=== PATIENT | male | born 1950 | race Caucasian/White ===

== ENCOUNTER 2017-10-30 13:44 | Inpatient (IN) ==
--- NOTE | 2017-10-29 22:02 | Discharge Summary ---
<Blanca Lackey - Last Filed: 10/29/17 22:00> Date of Encounter: 10/29/17 - Discharge Diagnosis (1) Rotator cuff tear arthropathy of right shoulder Priority: Primary Status: Acute (2) Status post reverse arthroplasty of right shoulder Priority: Primary Status: Acute (3) Obesity Priority: Secondary Status: Chronic Qualifiers: Obesity type: unspecified obesity type Obesity classification: unspecified obesity classification Serious obesity comorbidity presence: unspecified whether serious comorbidity present Qualified Code(s): E66.9 - Obesity, unspecified (4) Anticoagulated on Coumadin Priority: Secondary Status: Chronic Comments: Lovenox Bridge* Weight based -Will f/up with PCP versus Coumadin clinic (5) HTN (hypertension) Priority: Secondary Status: Chronic Qualifiers: Hypertension type: essential hypertension Qualified Code(s): I10 - Essential (primary) hypertension (6) MINA (obstructive sleep apnea) Priority: Secondary Status: Chronic (7) COPD (chronic obstructive pulmonary disease) Priority: Secondary Status: Chronic Qualifiers: COPD type: unspecified COPD Qualified Code(s): J44.9 - Chronic obstructive pulmonary disease, unspecified (8) History of pulmonary embolism Priority: Secondary Status: Chronic (9) PAF (paroxysmal atrial fibrillation) Priority: Secondary Status: Chronic (10) BPH (benign prostatic hyperplasia) Priority: Secondary Status: Chronic Qualifiers: Lower urinary tract symptom presence: unspecified whether lower urinary tract symptoms present Qualified Code(s): N40.0 - Benign prostatic hyperplasia without lower urinary tract symptoms - Hospital Course Hospital course: Mr. Santos is a 67 year old male - Time Spent with Patient Total time spent providing and/or coordinating discharge services: - Discharge Medications Home Medications: Enoxaparin [Lovenox] 150 mg SQ Q12HR 5 Days #10 syr 10/29/17 [Rx] OxyCODONE Immed Rel [Roxicodone 5 MG] 5 mg PO Q4HR PRN 7 Days #28 tablet [Rx] Amiodarone [Cordarone] 200 mg PO DAILY 10/30/17 [History] Celecoxib [Celebrex] 200 mg PO DAILY 10/30/17 [History] Enoxaparin [Lovenox] 40 mg SQ Q12HR 10/30/17 [History] Finasteride [Proscar] 5 mg PO DAILY 10/30/17 [History] Furosemide [Lasix] 40 mg PO DAILY 10/30/17 [History] Iron Polysaccharide Complex [Ferrex 150] 150 mg PO DAILY 10/30/17 [History] Loratadine [Allergy Relief] 10 mg PO DAILY 10/30/17 [History] Melatonin 5 mg PO HS 10/30/17 [History] Metoprolol Succinate [Toprol Xl] 50 mg PO BID 10/30/17 [History] Multivitamin [One Daily Essential] 1 tab PO DAILY 10/30/17 [History] Ranitidine HCl [Zantac] 150 mg PO DAILY 10/30/17 [History] Sertraline [Zoloft] 50 mg PO DAILY 10/30/17 [History] Valsartan [Diovan] 80 mg PO DAILY 10/30/17 [History] Warfarin [Coumadin] 5 mg PO TH 10/30/17 [History] Warfarin [Coumadin] 10 mg PO SUMOTUWEFRSA 10/30/17 [History] Allergies/Adverse Reactions: 3 Allergy/AdvReac Type Severity Reaction Status Date / Time tape Allergy See Uncoded 10/27/17 09:17 Comments Primary care physician: EDWINA Rosenberg - Patient Status Disposition: Home, Self-Care Condition: Good - Discharge Instructions Follow Up With: Brooke Medina CNP [Primary Care Provider] - Julianna Meneses [Family Provider] - <Donald Chi - Last Filed: 10/31/17 06:45> Orders not resulted at time of discharge: Pending orders 10/30/17 00:01 PT/INR [Prothrombin Time INR] [COAG] Routine 10/30/17 22:00 XR shoulder complete RT [XR] Routine H/H [Hemoglobin and Hematocrit] [HEME] Routine Date of Encounter: 10/31/17 Time of Encounter: 06:44 - Discharge Diagnosis (1) Morbid obesity with BMI of 70 and over, adult Priority: Secondary Status: Chronic (2) Rotator cuff tear arthropathy of right shoulder Priority: Primary Status: Chronic (3) Status post reverse arthroplasty of right shoulder Priority: Primary Status: Acute (4) Anticoagulated on Coumadin Priority: Secondary Status: Chronic (5) HTN (hypertension) Priority: Secondary Status: Chronic Qualifiers: Hypertension type: essential hypertension Qualified Code(s): I10 - Essential (primary) hypertension (6) MINA (obstructive sleep apnea) Priority: Secondary Status: Chronic (7) COPD (chronic obstructive pulmonary disease) Priority: Secondary Status: Chronic Qualifiers: COPD type: unspecified COPD Qualified Code(s): J44.9 - Chronic obstructive pulmonary disease, unspecified (8) History of pulmonary embolism Priority: Secondary Status: Chronic (9) PAF (paroxysmal atrial fibrillation) Priority: Secondary Status: Chronic (10) BPH (benign prostatic hyperplasia) Priority: Secondary Status: Chronic Qualifiers: Lower urinary tract symptom presence: unspecified whether lower urinary tract symptoms present Qualified Code(s): N40.0 - Benign prostatic hyperplasia without lower urinary tract symptoms - Hospital Course Hospital course: Mr. Santos is a 67 year old male Status post right total shoulder replacement. The patient had an uneventful postoperative course. They received antibiotics and physical therapy and were discharged in stable condition. There will follow -up in the office in 2 weeks. - Time Spent with Patient Total time spent providing and/or coordinating discharge services: Primary care physician: EDWINA Rosenberg - Patient Status Functional capacity at discharge: independent ambulation Overall status at discharge: patient is progressing back to baseline
[2017-10-30] MEDS ORDERED: CeFAZolin Syr 3,000MG/30 ML 3,000 MG/30 ML SYRINGE IVPB ONE (14:29)
[2017-10-30] MEDS ORDERED: Albuterol 2.5 MG/3 ML NEBULIZER IH ONE (14:29)
[2017-10-30] MEDS ORDERED: Lidocaine -MPF 1% 2 ML VIAL ID ONE (14:29)
[2017-10-30] MEDS ORDERED: Ringers Solution, Lactated 1,000 ML IVC SCH ×2 (14:30→20:48)
[2017-10-30] MEDS ORDERED: Lidocaine -MPF 1% 2 ML VIAL ONE (14:39)
[2017-10-30] MEDS ORDERED: Albuterol 2.5 MG/3 ML NEBULIZER ONE (14:39)
--- NOTE | 2017-10-30 15:23 | History & Physical Report ---
Date of Encounter: 10/30/17 Time of Encounter: 15:23 24 Hour HP Update - Instructions Instructions: If the History and Physical is less than 30 days old and was completed prior to A.M. admission and or procedure and has NOT been updated on calendar day of procedure please complete this update prior to performing procedure. - Update Patient reports changes in Medical Condition: No Changes in examination, assessment, or condition: No Changes in Medication: No Preop tests/diagnostics Reviewed: Yes Surgery Remains Indicated: Yes Consent for Planned Operative Procedure(s) Verified: Yes - Pre-Operative Checklist Preoperative Checklist Indicated: No Prophylactic Antibiotic Ordered: Yes Is VTE Prophylaxis Indicated?: Yes
--- NOTE | 2017-10-30 15:49 | Anesthesia Evaluation PreOp ---
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 last coumadin 10/26, on Lovenox bridge. Last Lovenox 10/29 2099. DVT and PE 2007. IVC filter.), GERD (Mild), Other (Super Obesity, BMI 71) Anesthesia History: No Prior Anesthetic Complications, Past Anesthesia (Left shoulder, knee) Alcohol Use: none Drug use: none Medications and Allergies Enoxaparin [Lovenox] 150 mg SQ Q12HR 5 Days #10 syr 10/29/17 [Rx] OxyCODONE Immed Rel [Roxicodone 5 MG] 5 mg PO Q4HR PRN 7 Days #28 tablet [Rx] Amiodarone [Cordarone] 200 mg PO DAILY 10/30/17 [History] Celecoxib [Celebrex] 200 mg PO DAILY 10/30/17 [History] Enoxaparin [Lovenox] 40 mg SQ Q12HR 10/30/17 [History] Finasteride [Proscar] 5 mg PO DAILY 10/30/17 [History] Furosemide [Lasix] 40 mg PO DAILY 10/30/17 [History] Iron Polysaccharide Complex [Ferrex 150] 150 mg PO DAILY 10/30/17 [History] Loratadine [Allergy Relief] 10 mg PO DAILY 10/30/17 [History] Melatonin 5 mg PO HS 10/30/17 [History] Metoprolol Succinate [Toprol Xl] 50 mg PO BID 10/30/17 [History] Multivitamin [One Daily Essential] 1 tab PO DAILY 10/30/17 [History] Ranitidine HCl [Zantac] 150 mg PO DAILY 10/30/17 [History] Sertraline [Zoloft] 50 mg PO DAILY 10/30/17 [History] Valsartan [Diovan] 80 mg PO DAILY 10/30/17 [History] Warfarin [Coumadin] 5 mg PO TH 10/30/17 [History] Warfarin [Coumadin] 10 mg PO SUMOTUWEFRSA 10/30/17 [History] 3 Allergy/AdvReac Type Severity Reaction Status Date / Time tape Allergy See Uncoded 10/27/17 09:17 Comments - Meds/Allergy Pre-op Review Medications Reviewed: Yes Allergies Reviewed: Yes Beta Blockers on Current Med List: Yes If Beta Blockers taken, Date/Time (Last Dose taken): 10/30 829 Anesthesia Results - Labs Laboratory Tests 10/27/17 10/27/17 10/27/17 09:50 09:50 09:50 Hgb 15.3 Hct 47.7 Plt Count 288 PT 23.6 H INR 2.2 APTT 48.4 H Sodium 140 Potassium 4.2 Chloride 107 Carbon Dioxide 24 BUN 28 H Creatinine 0.90 - Imaging EKG: report reviewed (Sinus bradycardia with 1st degree AVB, IVCD) Additional studies: PER CARDIOLOGY OFFICE NOTES: Echocardiogram Mar 2017 [place]: Technically limited study due to pt body habitus LV not well visualized, grossly normal EF Atria not well visualized RV not well visualized no or MR trivial TR small pericardial effusion ------ Holter [place] Mar 2017: NSR with rare PVCs, PACs. PROCEDURE: Cardiology Surgical Risk Assessment Notes: Pt can proceed with planned surgical procedure with no further cardiac testing. Pt is at high risk for cardiovascular complications in perioperative period. Agree with bridging coumadin with Lovenox for pt's history of hypercoagulable disorder and hx DVT/PE as well as PAF. 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 Risks, benefits, and alternatives discussed. Patient wishes to proceed.
[2017-10-30] MEDS ORDERED: *HR* Succinylcholine 200 MG/10 ML VIAL IVP ONE (16:22)
[2017-10-30] MEDS ORDERED: Lidocaine -MPF 2% 2 ML VIAL ONE (16:22)
[2017-10-30] MEDS ORDERED: *HR* Midazolam HCl 2 MG/2 ML VIAL ONE (16:22)
[2017-10-30] MEDS ORDERED: *HR* FentaNYL (PF) 100 MCG/2 ML VIAL ONE (16:22)
[2017-10-30] MEDS ORDERED: *HR* Propofol 200 MG/20 ML VIAL IVP ONE (16:22)
[2017-10-30] MEDS ORDERED: Ondansetron 4 MG/2 ML VIAL ONE (16:22)
[2017-10-30] MEDS ORDERED: Dexamethasone 4 MG/ML VIAL ONE (16:22)
[2017-10-30] MEDS ORDERED: Lidocaine -MPF 4% 5 ML AMPUL ONE (16:27)
[2017-10-30] MEDS ORDERED: *HR* Labetalol 20 MG/4 ML SYRINGE IVP PRN (16:42)
[2017-10-30] MEDS ORDERED: MORPHINE SUL Oral CONC 10 MG/0.5 ML ORAL.SYG SL PRN (16:42)
[2017-10-30] MEDS ORDERED: *HR* OxyCODONE Immed Rel 5 MG TABLET PO PRN (16:42)
[2017-10-30] MEDS ORDERED: ROPIVACAINE HCL/PF 0.5% 30 ML VIAL ONE (17:06)
[2017-10-30] MEDS ORDERED: Bupivacaine/Clonidine Syringe 1 EACH SYRINGE ONE ×2 (17:06→17:46)
--- NOTE | 2017-10-30 17:57 | Anesthesia Procedures ---
Date of Encounter: 10/30/17 Time of Encounter: 17:45 Procedures: Anesthesia - Nerve Block Procedure Date: 10/30/17 Time: 17:45 Surgical Procedure: Right TSR Checklist: Correct Patient Identifier, Correct procedure, History checked Correct side: Right Blood Thinner: No Monitor Applied: EKG, BP, Pulse Oximetry Supplemental Oxygen via Nasal Cannula (L/min): 4 Sedation: Versed (mg): 2 Sedation: Fentanyl (mcg): 150 Indication: Post Op Analgesia (per dr. leon) Pre-op Neuro Deficits: No Block Type: Supraclavicular, Other (scp, icb) Catheter placed: No Sterile Technique: Yes Ultrasound used: Yes Anatomy identified: Yes Visual spread of Local: Yes Neuro Stimulation: No Blood on Needle Aspiration: No Smooth Injection of Local: Yes Pain with Injection of Local: No Prep: Chlorhexadine Needle: 22 x 50 mm Stimuplex Local: 0.25% Bupivicaine w/Clonidine 20 mcg/cc (15cc for scp, 15cc for icb), Ropivacaine (30cc 0.5% ropi w/ 10 mg decadron) Volume (cc): 30, 15, 15 Number of Attempts: 1 Complications: None/effective block Vitals: Vital Signs/O2 Sat/Glucose, Most Recent Temp Pulse Resp BP Pulse Ox 98.6 F 60 12 144/73 94 10/30/17 14:55 10/30/17 17:52 10/30/17 17:52 10/30/17 17:52 10/30/17 17:52 Comments: naac (performed by Sussy De CRNA)
[2017-10-30] MEDS ORDERED: Ondansetron 4 MG/2 ML VIAL IVP ONE (17:59)
[2017-10-30] MEDS ORDERED: Naloxone 0.4 MG/ML INJ IVP PRN ×2 (17:59→20:48)
[2017-10-30] MEDS ORDERED: Dexamethasone 4 MG/ML VIAL IVP ONE (17:59)
[2017-10-30] MEDS ORDERED: Acetaminophen IV 1,000 MG/100 ML INFUS..BTL IVPB PRN (17:59)
[2017-10-30] MEDS ORDERED: *HR* Labetalol 100 MG/20 ML MDV IVP PRN (17:59)
[2017-10-30] MEDS ORDERED: *HR* Promethazine 25 MG/ML VIAL IVP PRN (17:59)
[2017-10-30] MEDS ORDERED: *HR* Enoxaparin 30 MG/0.3 ML SYRINGE SQ SCH (18:00)
[2017-10-30] MEDS ORDERED: EPHEDrine 50 MG/ML VIAL ONE (18:27)
--- NOTE | 2017-10-30 19:06 | Orthopedic Operative Note ---
Date of procedure: 10/30/17 Pre-op diagnosis: Right shoulder cuff tear arthropathy Post-op diagnosis: same Procedure: Procedure: Total Shoulder Replacment Reverse, right Estimated blood loss: 200 cc Hardware: Metal and polyethylene replacement: Arthrex large glenoid baseplate, 2 4.5 screws. 1 6.5 screw, 42+4 glenosphere, 9 humeral stem, poly insert 3 9 metal Exam Under anesthesia: Full motion no instability Procedural Notes: Massive tear subscap and supraspinatus. With grade 4 arthritic changes humeral head glenoid socket. Operative procedure: The patient was brought to the operating room and placed on the operating room table. After general anesthesia was administered the operative shoulder was examined. Findings were noted. The patient was placed in the modified beachchair position. All pressure points were padded appropriately. And the head was stabilized in the neutral position. The operative extremity was prepped and draped in the sterile surgical fashion. The patient received IV antibiotics prior to skin incision. A standard deltopectoral approach was made to the operative shoulder. Incision was made to the skin and subcutaneous tissue,hemo stasis was obtained with Bovie cautery. Using careful blunt dissection the cephalic vein was identified and mobilized medially. The deltopectoral interval was developed and the clavipectoral fascia was incised. The subscap was torn and retracted. The humerus was dislocated patient noted to have irreparable tear supraspinatus tendon, and the humeral cut was made along the anatomic neck. Patient noted to have grade 4 arthritic changes humeral head. Anterior and posterior Bankart retractors were placed to expose the glenoid. Patient noted to have grade 4 arthritic changes glenoid socket. The glenoid guide was seated and the centering hole was made. It was reamed with the appropriate reamer. . The large baseplate was seated and secured with (2) 4.5 screws and one 6.5 screw. The baseplate was irrigated and dried and the 42+4 Glenosphere was seated and secured with the Wadsworth taper. The Wadsworth taper was tested and found to be secure the humerus was redislocated and prepared with the diaphyseal reamers, followed by a broaching process up to the appropriate size 9 in the patient's anatomic version. The metaphyseal reamer was then utilized. Trial reduction found the shoulder to be relocatable. Trial components were removed and The appropriate 9 stem was impacted in place in the patient's anatomic version. Trial reduction found the shoulder to be relocatable and stable with the appropriate 9 metal 3 Bonita Trial component was removed and the implants were seated and secured the shoulder was reduced. The shoulder had excellent motion and excellent stability and no evidence of dislocation. The deep tissue was irrigated with pulse irrigation. The PA close the shoulder. The deltopectoral interval was closed with a running #1 PDS suture, subcutaneous tissue was irrigated and closed with 0 PDS suture, the skin was closed with Dermabond. The patient was placed in a sterile dressing, abduction brace and extubated. The patient was then transferred to the recovery room in stable condition. Anesthesia: GETA Surgeon: Donald Chi Was there an economist research assistant present: No Estimated blood loss (cc): 200 Condition: stable Disposition: PACU
[2017-10-30] MEDS: *HR* HYDROmorphone (PF) 1 MG/ML SYRINGE IVP PRN ×4 (19:32→20:06)
[2017-10-30 20:00] LABS: Hematocrit 45.9 % (37.5-50.1); Hemoglobin 14.6 g/dL (12.9-16.9)
[2017-10-30 20:05] LABS: INR 1.3; Prothrombin Time 14.2 Seconds (9.4-12.1)
--- NOTE | 2017-10-30 20:14 | Anesthesia Evaluation Post Op ---
Date of Encounter: 10/30/17 Time of Encounter: 20:15 - Vital Signs Vital Signs: Vital Signs/O2 Sat/Glucose, Most Current Temp Pulse Resp BP Pulse Ox 10/30/17 20:04 71 20 139/73 89 10/30/17 19:54 98.8 F 72 20 137/75 89 10/30/17 19:44 76 20 133/69 90 10/30/17 19:34 78 20 153/71 90 10/30/17 19:24 98.8 F 79 20 159/68 92 10/30/17 17:52 60 12 144/73 94 10/30/17 17:41 68 14 155/97 93 10/30/17 17:30 70 14 91 - Lungs Lungs: Clear Ascult./Percussion - Airway Airway: Non-obstructed - Cardiovascular Regular Rate - Mental Status Mental Status: Alert & Oriented, Answers Appropriately - Pain Pain Scale: 0 - Nausea Vomiting Nausea Vomiting: Not Present - Hydration Hydration: Ice chips - Discharge PostOp Status: Transfer Patient to floor
[2017-10-30] MEDS ORDERED: traMADol 50 MG TABLET PO PRN (20:48)
[2017-10-30] MEDS ORDERED: *HR* OxyCODONE/APAP 5/325 TABLET PO PRN (20:48)
[2017-10-30] MEDS ORDERED: MOM Conc 10 ML UD.LIQ PO PRN (20:48)
[2017-10-30] MEDS ORDERED: *HR* Warfarin 10 MG TABLET PO SCH (20:48)
[2017-10-30] MEDS ORDERED: Ondansetron 4 MG/2 ML VIAL IVP PRN (20:48)
[2017-10-30] MEDS ORDERED: Temazepam 15 MG CAPSULE PO PRN (20:48)
[2017-10-30] MEDS ORDERED: Sennosides 8.6 MG TABLET PO PRN (20:48)
[2017-10-30] MEDS ORDERED: Melatonin 3 MG TABLET PO SCH (21:00)
[2017-10-30] MEDS: Metoprolol XL (24 HR) Succ 50 MG TAB.ER.24H PO SCH (22:02)
[2017-10-30] MEDS: CeFAZolin Syr 3,000MG/30 ML 3,000 MG/30 ML SYRINGE IVPB SCH (22:02)
[2017-10-30] MEDS: *HR* OxyCODONE Immed Rel 5 MG TABLET PO PRN (22:03)
[2017-10-31 01:22] LABS: Hematocrit 45.3 % (37.5-50.1); Hemoglobin 14.5 g/dL (12.9-16.9)
[2017-10-31] MEDS: CeFAZolin Syr 3,000MG/30 ML 3,000 MG/30 ML SYRINGE IVPB SCH (05:40)
[2017-10-31] MEDS ORDERED: *HR* Enoxaparin 30 MG/0.3 ML SYRINGE SQ SCH (06:00)
--- NOTE | 2017-10-31 06:46 | Orthopedics Progress Note ---
Date of Encounter: 10/31/17 Time of Encounter: 06:45 - Assessment and Plan (1) Morbid obesity with BMI of 70 and over, adult Current Visit: Yes Status: Chronic (2) Rotator cuff tear arthropathy of right shoulder Current Visit: No Status: Chronic (3) Status post reverse arthroplasty of right shoulder Current Visit: No Status: Acute (4) Anticoagulated on Coumadin Current Visit: No Status: Chronic (5) HTN (hypertension) Current Visit: No Status: Chronic Qualifiers: Hypertension type: essential hypertension Qualified Code(s): I10 - Essential (primary) hypertension (6) MINA (obstructive sleep apnea) Current Visit: No Status: Chronic (7) COPD (chronic obstructive pulmonary disease) Current Visit: No Status: Chronic Qualifiers: COPD type: unspecified COPD Qualified Code(s): J44.9 - Chronic obstructive pulmonary disease, unspecified (8) History of pulmonary embolism Current Visit: No Status: Chronic (9) PAF (paroxysmal atrial fibrillation) Current Visit: No Status: Chronic (10) BPH (benign prostatic hyperplasia) Current Visit: No Status: Chronic Qualifiers: Lower urinary tract symptom presence: unspecified whether lower urinary tract symptoms present Qualified Code(s): N40.0 - Benign prostatic hyperplasia without lower urinary tract symptoms Subjective Interval history: Patient was seen this morning doing well without complaints. Afebrile vital signs stable. Operative extremity: Neurovascularly intact Dressing clean dry and intact Calves nontender Assessment and plan: Continue with postoperative care Discharge today Objective Vital signs: Vital Signs Temp Pulse Resp BP Pulse Ox 10/31/17 06:40 98.2 F 113 18 116/52 93 10/31/17 04:36 98.9 F 58 17 125/56 92 10/31/17 00:01 97.9 F 56 14 102/53 92 10/30/17 21:58 97.7 F 89 14 115/53 89 10/30/17 21:22 98.0 F 68 14 125/67 93 10/30/17 20:24 71 20 136/69 89 10/30/17 20:04 71 20 139/73 89 10/30/17 19:54 98.8 F 72 20 137/75 89 10/30/17 19:44 76 20 133/69 90 10/30/17 19:34 78 20 153/71 90 10/30/17 19:24 98.8 F 79 20 159/68 92 04/23/18 17:52 60 12 144/73 94 10/30/17 17:41 68 14 155/97 93 10/30/17 17:30 70 14 91 10/30/17 14:55 98.6 F 67 18 149/83 93 Intake and Output 10/30/17 10/30/17 10/31/17 15:59 23:59 07:59 Intake Total 30 / 30 Output Total 200 / 200 Balance -170 / -170 Intake: IV Fluids 30 / 30 Ancef Syringe 3,000 MG/30 ML 3, 30 / 30 000 mg In 30 ml @ 200 mls/hr IVPB Q8H [facility] Rx#:[id number] Output: Estimated Blood Loss 200 / 200 Other: Weight 210.467 kg - Labs CBC & BMP: 10/31/17 01:07 Labs: Abnormal lab results PT 14.2 Seconds (9.4-12.1) H 10/30/17 19:51 - VTE Documentation of Mechanical Device: Venous foot pump, device Consult Discharge Plan - Plan Referrals: Brooke Medina CNP [Primary Care Provider] - Julianna Meneses [Family Provider] -
[2017-10-31] MEDS ORDERED: *HR* Amiodarone 200 MG TABLET PO SCH (09:00)
[2017-10-31] MEDS ORDERED: Loratadine 10 MG TABLET PO SCH (09:00)
[2017-10-31] MEDS ORDERED: Furosemide 40 MG TABLET PO SCH (09:00)
[2017-10-31] MEDS ORDERED: Multivit/Ca/Min/Fe/FA 1 TAB TABLET PO SCH (09:00)
[2017-10-31] MEDS ORDERED: Finasteride 5 MG TABLET PO SCH (09:00)
[2017-10-31] MEDS ORDERED: Valsartan 80 MG TABLET PO SCH (09:00)
[2017-10-31] MEDS ORDERED: Famotidine 20 MG TABLET PO SCH (09:00)
[2017-10-31] MEDS ORDERED: Iron Polysaccharide Complex 150 MG CAPSULE PO SCH (09:00)
[2017-10-31] MEDS: *HR* OxyCODONE Immed Rel 5 MG TABLET PO PRN (09:56)
[2017-10-31] MEDS: Metoprolol XL (24 HR) Succ 50 MG TAB.ER.24H PO SCH (09:57)
[2017-10-31 11:20] VITALS: BP 119/58
[2017-10-31] MEDS ORDERED: Acetaminophen 325 MG TABLET PO ONE (12:55)
--- NOTE | 2017-10-31 15:57 | Event Note ---
Date of Encounter: 10/31/17 Time of Encounter: 15:56 PCR - POD#1 - Right reverse TSR Patient seen at bedside. Labs reviewed. PT/INR NOT THERAPEUTIC Pain control: ADEQUATE Participating in PT. All questions and concerns addressed. Educated on use of incentive spirometer. Encouraged ambulation and proper hydration. Patient educated on post-operative restrictions and post-operative care. Addressed: PT/INR, BRACE ADJUSTED Discharge plan: D/C HOME TODAY COUMADIN/LOVENOX BRIDGE - SET UP WITH COUMADIN CLINIC FOR THIS WEEK FOR MONITORING.
[2017-11-02] MEDS ORDERED: *HR* Warfarin 10 MG TABLET PO SCH (18:00)
== END 2017-10-31 13:45 | disposition home or self-care (01) | DRG 483 ==
LOC: SAMDAY 13:44 → 3NENU 20:40
PROVIDERS: ADMIT Orthopaedic Surgery; ATTEND Orthopaedic Surgery